=== PATIENT | male | born 1960 | race Caucasian/White ===

== ENCOUNTER 2016-06-13 02:51 | Emergency (ER) | payer SELFPAY ==
[2016-06-13] MEDS ORDERED: NS 1000 ML 1,000 ML IV SCH (03:00)
[2016-06-13] MEDS ORDERED: NS 1000 ML 1,000 ML ONE (03:01)
[2016-06-13 03:07] VITALS: BP 154/79; BMI 25.0
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
[2016-06-13 03:19] LABS: BASOPHILS # (AUTO) 0.1 X10^3/uL (0.0-0.1); BASOPHILS % (AUTO) 0.9 % (0.2-1.0); EOSINOPHILS # (AUTO) 0.3 x10^3/uL (0.0-0.2); EOSINOPHILS % (AUTO) 3.3 % (0.9-2.9); HEMATOCRIT 45.8 % (42.0-54.0); HEMOGLOBIN 15.8 g/dL (13.5-18.0); LYMPHOCYTES # (AUTO) 3.6 X10^3/uL (1.3-2.9); LYMPHOCYTES % (AUTO) 35.6 % (21.0-51.0); MEAN CORPUSCULAR HEMOGLOBIN 31.1 pg (27.0-34.0); MEAN CORPUSCULAR HGB CONC 34.4 g/dL (33.0-35.0); MEAN CORPUSCULAR VOLUME 90.2 fL (80.0-100.0); MONOCYTES % (AUTO) 9.9 % (0.0-13.0); NEUTROPHILS % (AUTO) 50.3 % (42.0-75.0); PLATELET COUNT 243 X10^3/uL (150.0-450.0); RED BLOOD COUNT 5.08 X10^6/uL (4.7-6.0); RED CELL DISTRIBUTION WIDTH 13.2 % (11.6-16.5)
[2016-06-13 03:28] LABS: ALANINE AMINOTRANSFERASE 27 Units/L (12-78); ALBUMIN 3.3 g/dL (3.4-5.0); ALKALINE PHOSPHATASE 171 Units/L (46-116); ASPARTATE AMINO TRANSFERASE 27 Units/L (15-37); BLOOD UREA NITROGEN 15 mg/dL (7-18); CALCIUM 8.2 mg/dL (8.5-10.1); CARBON DIOXIDE 29.1 mmol/L (21-32); CHLORIDE 105 mmol/L (98-107); COR CA(FOR HYPOALB) 8.8 mg/dL (8.5-10.1); COR NA(FOR HYPERGLY) 142 mmol/L (136-145); CREATININE 0.99 mg/dL (0.70-1.30); GLUCOSE 127 mg/dL (65-99); SODIUM 141 mmol/L (136-145); TOTAL PROTEIN 7.3 g/dL (6.4-8.2); eGFR BLACK RACES > 60 (>60); eGFR NON BLACK RACES > 60 (>60)
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
[2016-06-13] MEDS ORDERED: ADACEL TDaP IM ONE ×2 (04:02→04:09)
[2016-06-13] MEDS ORDERED: ROCEPHIN VIAL 1 GM 1 GM in NS 50 ML IV + SPIKE MINIBAG* 50 ML IV ONE (04:14)
[2016-06-13] MEDS ORDERED: ROCEPHIN VIAL 1 GM ONE (04:19)
[2016-06-13] MEDS ORDERED: NS 50 ML IV + SPIKE MINIBAG* 50 ML IV ONE (04:19)
== END 2016-06-13 05:30 | disposition home or self-care (01) ==
LOC: ER 02:51
DX: S71.101A Unspecified open wound, right thigh, initial encounter (principal); R73.9 Hyperglycemia, unspecified; W34.00XA Accidental discharge from unspecified firearms or gun, initial encounter
CPT/HCPCS: 36415; 73552; 80053; 85025; 90471; 96365; 96367; 96374; 99283; A4222; J0696

== ENCOUNTER 2020-06-16 11:02 | Inpatient (IN) ==
[2020-06-16 11:11] VITALS: BMI 29.4
[2020-06-16] MEDS ORDERED: THORAZINE INJ 25 MG AMP IM ONE (11:35)
[2020-06-16] MEDS ORDERED: THORAZINE INJ 25 MG AMP ONE (11:37)
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
[2020-06-16 12:24] LABS: BASOPHILS % (AUTO) 0.2 % (0.2-1.0); HEMOGLOBIN 18.5 g/dL (13.5-18.0); LYMPHOCYTES # (AUTO) 1.3 X10^3/uL (1.3-2.9); LYMPHOCYTES % (AUTO) 5.8 % (21.0-51.0); MEAN CORPUSCULAR HEMOGLOBIN 31.1 pg (27.0-34.0); MEAN CORPUSCULAR HGB CONC 34.2 g/dL (33.0-35.0); MEAN CORPUSCULAR VOLUME 90.9 fL (80.0-100.0); MEAN PLATELET VOLUME 8.3 fL (7.4-11.0); MONOCYTES # (AUTO) 1.8 x10^3/uL (0.3-0.8); MONOCYTES % (AUTO) 8.1 % (0.0-13.0); NEUTROPHILS # (AUTO) 19.4 x10^3/uL (2.2-4.8); NEUTROPHILS % (AUTO) 85.9 % (42.0-75.0); PLATELET COUNT 266 X10^3/uL (150.0-450.0); RED BLOOD COUNT 5.94 X10^6/uL (4.7-6.0); RED CELL DISTRIBUTION WIDTH 13.6 % (11.6-16.5); WHITE BLOOD COUNT 22.5 X10^3/uL (3.6-10.0)
[2020-06-16 12:31] LABS: ALANINE AMINOTRANSFERASE 25 Units/L (12-78); ALBUMIN 3.7 g/dL (3.4-5.0); ALKALINE PHOSPHATASE 150 Units/L (46-116); AMYLASE 130 Units/L (25-115); ASPARTATE AMINO TRANSFERASE 25 Units/L (15-37); BLOOD UREA NITROGEN 65 mg/dL (7-18); CALCIUM 9.2 mg/dL (8.5-10.1); CARBON DIOXIDE 38.7 mmol/L (21-32); CHLORIDE 88 mmol/L (98-107); COR NA(FOR HYPERGLY) 135 mmol/L (136-145); LIPASE 154 Units/L (73-393); SODIUM 133 mmol/L (136-145); TOTAL PROTEIN 9.3 g/dL (6.4-8.2); eGFR NON BLACK RACES 38 (>60)
[2020-06-16 13:36] LABS: PLATELET MORPHOLOGY COMMENT NORMAL (NORMAL)
[2020-06-16] MEDS ORDERED: NS 1000 ML 1,000 ML IV ONE ×2 (14:53→17:18)
[2020-06-16] MEDS ORDERED: ZOFRAN INJ 4 MG VIAL IVP ONE (14:54)
[2020-06-16] MEDS ORDERED: ZOFRAN INJ 4 MG VIAL ONE ×2 (14:58→18:55)
[2020-06-16] MEDS ORDERED: NS 1000 ML 1,000 ML ONE ×3 (14:58→18:53)
--- NOTE | 2020-06-16 14:59 | CT ---
HISTORYABDOMINAL PAIN, N/V, HICCUPSSTUDYABDOMEN/PELVIS W/O CONCOMPARISONNone availableTECHNIQUEAxial CT images of the abdomen and pelvis without intravenous contrast. Coronal and sagittal images are obtained. Dose reduction techniques including Automated Exposure Control (AEC) and adjustment of mA and kV were utilized.FINDINGSLower chest: NormalLiver: NormalGallbladder and Bile Ducts:NormalPancreas: NormalSpleen: NormalAdrenals: NormalKidneys: NormalBladder: NormalBowel and Stomach: Small knuckle of small bowel extends into a 5.1 x 4.4 cm umbilical hernia. There is moderate dilation of the small bowel and stomach proximally, compatible with obstruction. The small bowel within the hernia sac appears dilated without mural thickening or significant adjacent inflammatory stranding. The small bowel distally is decompressed. Enteric contrast is only located within the gastric lumen. Colon is unremarkable.Lymph Nodes: No significant lymphadenopathyVasculature: Abdominal aorta and branching vessels are normal in caliberOther: No free air, free fluid, or focal fluid collection. There is an additional small fat containing left inguinal hernia and tiny right inguinal hernia, which also contains non inflamed fat.Osseous Structures: No acute osseous findings. Scattered degenerative changes of the spine.IMPRESSIONSmall-bowel obstruction related to a small segment of small bowel extending into an umbilical hernia. No CT findings of strangulation detected within the hernia sac at this time.Other chronic, incidental findings, as above.Electronically signed by: Esequiel Parham (Jun 16, 2020 14:57:31)
[2020-06-16] MEDS ORDERED: PEPCID 20 MG IV PREMIX* 20 MG/50 ML BAG IV ONE ×2 (15:04→15:08)
[2020-06-16] MEDS ORDERED: REGLAN INJ 10 MG VIAL IVP ONE (15:04)
[2020-06-16] MEDS ORDERED: ZOSYN VIAL 3.375 GRAMS IV ONE (17:24)
[2020-06-16] MEDS ORDERED: NS 100 ML IV + SPIKE MINIBAG* 100 ML IV ONE (17:24)
[2020-06-16] MEDS: ZOSYN VIAL 3.375 GRAMS 3.375 G in NS 100 ML IV + SPIKE MINIBAG* 100 ML IV SCH ×2 (17:34→23:30)
--- NOTE | 2020-06-16 18:02 | RAD ---
HISTORYPRE OP (SBO)/ NG TUBE PLACEMENTSTUDYCHEST x-ray, 1 VIEWCOMPARISONNoneFINDINGSThe trachea is midline. The cardiac silhouette is unremarkable. Nasogastric tube passes into the stomach.Lungs appear clear. No pneumothorax or pleural effusion is seen. Persistent bowel dilation is seen in the upper abdomen.No acute bony abnormality is seen.IMPRESSIONNasogastric tube passes into the fundus of the stomach.Electronically signed by: Chadwick Stahl (Jun 16, 2020 18:01:06)
[2020-06-16] MEDS ORDERED: FENTANYL INJ 100 mcg ONE (18:53)
[2020-06-16] MEDS ORDERED: ZEMURON 50 MG VIAL ONE (18:53)
[2020-06-16] MEDS ORDERED: OFIRMEV IV 1000 MG VIAL 1,000 MG/100 ML VIAL IV ONE (18:53)
[2020-06-16] MEDS ORDERED: ULTANE GAS IN ONE (18:55)
[2020-06-16] MEDS ORDERED: BRIDION ONE (18:55)
[2020-06-16] MEDS ORDERED: DIPRIVAN VIAL ONE (18:55)
[2020-06-16] MEDS ORDERED: DECADRON INJ ONE (18:55)
[2020-06-16] MEDS ORDERED: TORADOL 30 MG VIAL ONE (18:55)
[2020-06-16] MEDS ORDERED: XYLOCAINE 2 % (PLAIN) ONE (18:55)
[2020-06-16] MEDS ORDERED: VERSED ONE (18:55)
[2020-06-16] MEDS ORDERED: POLYMYXIN B SULFATE ONE (19:14)
[2020-06-16] MEDS ORDERED: DILAUDID INJ IVP PRN ×2 (20:24→21:07)
[2020-06-16] MEDS ORDERED: TYLENOL 325 MG TAB PO PRN (20:34)
[2020-06-16] MEDS ORDERED: NS 1000 ML 1,000 ML IV SCH (20:34)
[2020-06-16] MEDS ORDERED: MORPHINE SULFATE INJ 2 MG INJ IVP PRN (20:34)
[2020-06-16] MEDS ORDERED: FLAGYL IV PREMIX 500 MG BAG 500 MG/100 ML BAG IV SCH (21:00)
[2020-06-16] MEDS ORDERED: D5 1/2 NS 1000 ML 1,000 ML IV SCH ×2 (21:00)
[2020-06-16] MEDS ORDERED: DILAUDID INJ ONE (21:01)
[2020-06-16] MEDS ORDERED: ZOFRAN INJ 4 MG VIAL IVP PRN (21:07)
[2020-06-16] MEDS ORDERED: REGLAN INJ 10 MG VIAL IVP PRN (21:07)
[2020-06-16] MEDS ORDERED: PHENERGAN INJ 25 MG IM PRN (21:07)
[2020-06-16] MEDS ORDERED: BENADRYL INJ 50 MG VIAL IVP PRN (21:07)
[2020-06-16] MEDS: FLAGYL IV PREMIX 500 MG BAG 500 MG/100 ML BAG IV SCH (22:10)
[2020-06-17 05:43] LABS: BILIRUBIN,URINE NEGATIVE (NEGATIVE); BLOOD/HEMOGLOBIN,URINE NEGATIVE (NEGATIVE); GLUCOSE, URINE NEGATIVE (NEGATIVE); KETONES,URINE NEGATIVE (NEGATIVE); LEUKOCYTE ESTERASE ,URINE NEGATIVE (NEGATIVE); NITRITES,URINE NEGATIVE (NEGATIVE); PROTEIN,URINE 1+ (NEGATIVE); UROBILINOGEN,URINE NORMAL (NORMAL)
[2020-06-17 05:50] LABS: APPEARANCE,URINE CLEAR (CLEAR); BACTERIA,URINE TRACE /HPF (NEGATIVE); COLOR,URINE YELLOW (YELLOW); RBC,URINE 0-2 /HPF (0-3); SQUAMOUS EPITHELIAL CELL,UR RARE /HPF (NEGATIVE)
[2020-06-17 05:59] LABS: BASOPHILS % (AUTO) 0.1 % (0.2-1.0); HEMATOCRIT 41.3 % (42.0-54.0); LYMPHOCYTES # (AUTO) 0.7 X10^3/uL (1.3-2.9); LYMPHOCYTES % (AUTO) 4.7 % (21.0-51.0); MEAN CORPUSCULAR HGB CONC 33.9 g/dL (33.0-35.0); MEAN CORPUSCULAR VOLUME 91.4 fL (80.0-100.0); MEAN PLATELET VOLUME 8.8 fL (7.4-11.0); MONOCYTES # (AUTO) 1.2 x10^3/uL (0.3-0.8); MONOCYTES % (AUTO) 8.5 % (0.0-13.0); NEUTROPHILS # (AUTO) 12.2 x10^3/uL (2.2-4.8); NEUTROPHILS % (AUTO) 86.7 % (42.0-75.0); PLATELET COUNT 232 X10^3/uL (150.0-450.0); RED BLOOD COUNT 4.52 X10^6/uL (4.7-6.0); RED CELL DISTRIBUTION WIDTH 13.5 % (11.6-16.5); WHITE BLOOD COUNT 14.1 X10^3/uL (3.6-10.0)
[2020-06-17] MEDS: ZOSYN VIAL 3.375 GRAMS 3.375 G in NS 100 ML IV + SPIKE MINIBAG* 100 ML IV SCH ×3 (06:05→22:00)
[2020-06-17 06:33] LABS: ALBUMIN 2.5 g/dL (3.4-5.0); CALCIUM 7.4 mg/dL (8.5-10.1); CARBON DIOXIDE 32.9 mmol/L (21-32); COR CA(FOR HYPOALB) 8.6 mg/dL (8.5-10.1); CREATININE 1.69 mg/dL (0.70-1.30); TOTAL PROTEIN 6.5 g/dL (6.4-8.2)
[2020-06-17] MEDS: LOVENOX INJ 40 MG SYR SC SCH (09:01)
[2020-06-17] MEDS: DILAUDID INJ IVP PRN ×2 (09:07→18:06)
[2020-06-17] MEDS: FLAGYL IV PREMIX 500 MG BAG 500 MG/100 ML BAG IV SCH ×3 (09:25→20:27)
[2020-06-17] MEDS: D5 1/2 NS 1000 ML 1,000 ML IV SCH ×2 (09:50→17:56)
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
[2020-06-18] MEDS: D5 1/2 NS 1000 ML 1,000 ML IV SCH ×4 (01:27→20:38)
[2020-06-18] MEDS: FLAGYL IV PREMIX 500 MG BAG 500 MG/100 ML BAG IV SCH ×3 (05:11→20:38)
[2020-06-18] MEDS: ZOSYN VIAL 3.375 GRAMS 3.375 G in NS 100 ML IV + SPIKE MINIBAG* 100 ML IV SCH ×3 (06:13→21:53)
--- NOTE | 2020-06-18 07:37 | DR.CONSULT ---
CONSULT Consultation for Day of: Date: 06/17/20 Chief Complaint Chief Complaint: Abdominal pain Allergies Allergies Allergy/AdvReac Type Severity Reaction Status Date / Time No Known Drug Allergies Allergy Verified 06/16/20 11:14 History of Present Illness History of Present Illness: Pt is a 59 year old male no known past medical history admitted for strangulated umbilical hernia. He is post op day 1 of laparotomy, small bowel resection, repair or strangulated umbilical hernia. Medicine consulted for acute kidney injury. Creatinine gradually trending down: 1.90>1.69. Pt is currently on IVF D5% 1/2 NS@100ml/h. Will continue IVF and trend renal function. Other labs: Wbc 14.1, Hgb 14, Plt 232, Na 136, K 3.4, Glucose 182. On examination patient resting comfortably, still having some abdominal pain but has improved. Continue IV antibiotics: Zosyn. Pt is currently NPO, instructions per surgery OOB with binder, DVT prophylaxis. Will continue to monitor and follow up labs/imaging in the morning. Past Surgical History Surgical History: No History Social History Does patient currently use any type of tobacco product: No Have you used tobacco products in the last 12 months: No Type of Tobacco Use: None How many years tobacco product used: 0 Does any household member use tobacco: No Alcohol Use: None Drug Use: None Medications Home Medications: No Known Drug Allergies Allergy (Verified 06/16/20 11:14) CONTINUE taking the following medications NK 06/16/20 [History] Review of Systems Constitutional: Weakness; denies Fever and Chills Eyes: No Symptoms Reported ENT: No Symptoms Reported Respiratory: No Symptoms Reported Cardiovascular: No Symptoms Reported Gastrointestinal: Nausea and Abdominal Pain; denies Vomiting, Diarrhea and Constipation Genitourinary: No Symptoms Reported Musculoskeletal: No Symptoms Reported Skin: No Symptoms Reported Neurological: No Symptoms Reported Physical Exam Vital Signs: Temperature 98.1 F Pulse Rate [Left] 84 Pulse Rate 72 Respiratory Rate 20 Blood Pressure [Left Arm] 122/63 Blood Pressure 122/60 O2 Sat by Pulse Oximetry 96 Oriented: Normal Eyes: Normal Ear: Normal Nose: Normal Throat: Normal Respiratory: Clear Throughout Cardiovascular: Normal : Normal Auscultation: Bowel Sounds: Normal Palpation: Normal Tenderness: Diffuse Skin: Normal Musculoskeletal: Normal Psychiatric: Normal Mood Description: Calm Speech Pattern: Clear Plan Plan: MAI: Continue IVF, trend renal function
--- NOTE | 2020-06-18 07:50 | PCM.PROG ---
Progress Note Progress Note for Day of Date of Exam: 06/18/20 Subjective Subjective: Pt is a 59 year old male no known past medical history admitted for strangulated umbilical hernia. He is POD#2 of laparotomy, small bowel resection, repair of strangulated umbilical hernia. Medicine consulted for acute kidney injury. This morning he is resting comfortably in bed and reports improvement in abdominal pain. He has been changed to CLD by surgery, no bowel movement yet. Renal function has significantly improved Cr:1.90>1.69>1.0. Pt is currently on IVF D5% 1/2 NS@100ml/h and IV Zosyn. Labs/imaging: Wbc 9.1, Hgb 13, Plt 224, Na 137, K 3.6, Glucose 109. Continue OOB with binder, DVT prophylaxis, IVF, and monitor renal function. Past Medical Family Social History Past Med/Fam/Surg Hx: No changes since H&P Allergies: Allergies No Known Drug Allergies Allergy (Verified 06/16/20 11:14) Review of Systems ROS: No change since H&P Vital Signs and I&O's Vital Signs: Temperature 98.1 F Pulse Rate [Left] 84 Pulse Rate 72 Respiratory Rate 20 Blood Pressure [Left Arm] 122/63 Blood Pressure 122/60 O2 Sat by Pulse Oximetry 96 Intake and Output: Intake & Output 06/15/20 06/16/20 06/17/20 06/18/20 23:59 23:59 23:59 23:59 Intake Total 500 / 500 1543 / 1543 534 / 534 Output Total 630 / 630 1400 / 1400 850 / 850 Balance -130 / -130 143 / 143 -316 / -316 Physical Exam Oriented: Normal Eyes: Normal Ear: Normal Nose: Normal Throat: Normal Respiratory: Normal Cardiovascular: Normal : Normal Auscultation: Bowel Sounds: Normal Tenderness: Mild Skin: Normal Musculoskeletal: Normal Psychiatric: Normal Mood Description: Calm Speech Pattern: Clear Laboratory and Diagnostics Result Diagrams: 06/18/20 07:32 06/18/20 07:32 Labs: 06/16/20 19:57 Abdomen Gram Stain - Final Laboratory WBC 14.1 X10^3/uL (3.6-10.0) H D 06/17/20 05:15 RBC 4.52 X10^6/uL (4.7-6.0) L 06/17/20 05:15 Hgb 14.0 g/dL (13.5-18.0) D 06/17/20 05:15 Hct 41.3 % (42.0-54.0) L 06/17/20 05:15 MCV 91.4 fL (80.0-100.0) 06/17/20 05:15 MCH 31.0 pg (27.0-34.0) 06/17/20 05:15 MCHC 33.9 g/dL (33.0-35.0) 06/17/20 05:15 RDW 13.5 % (11.6-16.5) 06/17/20 05:15 Plt Count 232 X10^3/uL (150.0-450.0) 06/17/20 05:15 Plt Count Comment Adequate (ADEQUATE) 06/16/20 11:50 MPV 8.8 fL (7.4-11.0) 06/17/20 05:15 Neut % (Auto) 86.7 % (42.0-75.0) H 06/17/20 05:15 Lymph % (Auto) 4.7 % (21.0-51.0) L 06/17/20 05:15 [place] % (Auto) 8.5 % (0.0-13.0) 06/17/20 05:15 Eos % (Auto) 0.0 % (0.9-2.9) L 06/17/20 05:15 Baso % (Auto) 0.1 % (0.2-1.0) L 06/17/20 05:15 Neut # (Auto) 12.2 x10^3/uL (2.2-4.8) H 06/17/20 05:15 Lymph # (Auto) 0.7 X10^3/uL (1.3-2.9) L 06/17/20 05:15 [place] # (Auto) 1.2 x10^3/uL (0.3-0.8) H 06/17/20 05:15 Eos # (Auto) 0.0 x10^3/uL (0.0-0.2) 06/17/20 05:15 Baso # (Auto) 0.0 X10^3/uL (0.0-0.1) 06/17/20 05:15 Absolute Nucleated RBC 0.1 /100WBC 06/17/20 05:15 Total Counted 100 06/16/20 11:50 Neutrophils % (Manual) 87 % (39-76) H 06/16/20 11:50 Lymphocytes % (Manual) 9 % (13-43) L 06/16/20 11:50 Monocytes % (Manual) 4 % (4-9) 06/16/20 11:50 Plt Morphology Comment Normal (NORMAL) 06/16/20 11:50 RBC Morphology Normal (NORMAL) 06/16/20 11:50 Sodium 136 mmol/L (136-145) 06/17/20 05:15 Corrected Sodium 138 mmol/L (136-145) 06/17/20 05:15 Potassium 3.4 mmol/L (3.5-5.1) L 06/17/20 05:15 Chloride 98 mmol/L (98-107) 06/17/20 05:15 Carbon Dioxide 32.9 mmol/L (21-32) H 06/17/20 05:15 BUN 61 mg/dL (7-18) H 06/17/20 05:15 Creatinine 1.69 mg/dL (0.70-1.30) H 06/17/20 05:15 Est GFR (MDRD) Af Amer 53 (>60) L 06/17/20 05:15 Est GFR (MDRD) Non-Af 44 (>60) L 06/17/20 05:15 Glucose 182 mg/dL (65-99) H 06/17/20 05:15 Calcium 7.4 mg/dL (8.5-10.1) L 06/17/20 05:15 Corrected Calcium 8.6 mg/dL (8.5-10.1) 06/17/20 05:15 Total Bilirubin 1.40 mg/dL (0.2-1.0) H 06/17/20 05:15 AST 22 Units/L (15-37) 06/17/20 05:15 ALT 21 Units/L (12-78) 06/17/20 05:15 Alkaline Phosphatase 105 Units/L (46-116) 06/17/20 05:15 Total Protein 6.5 g/dL (6.4-8.2) 06/17/20 05:15 Albumin 2.5 g/dL (3.4-5.0) L 06/17/20 05:15 Globulin 4.0 g/dL (2.5-4.5) 06/17/20 05:15 Albumin/Globulin Ratio 0.6 Ratio (1.1-2.1) L 06/17/20 05:15 Amylase 130 Units/L (25-115) H 06/16/20 11:50 Lipase 154 Units/L (73-393) 06/16/20 11:50 Specimen Type Clean catch urine 06/17/20 04:16 Urine Color Yellow (YELLOW) 06/17/20 04:16 Urine Appearance Clear (CLEAR) 06/17/20 04:16 Urine pH 5.0 (5.0 - 8.0) 06/17/20 04:16 Ur Specific [place] 1.020 (1.000-1.030) 06/17/20 04:16 Urine Protein 1+ (NEGATIVE) 06/17/20 04:16 Urine Glucose (UA) Negative (NEGATIVE) 06/17/20 04:16 Urine Ketones Negative (NEGATIVE) 06/17/20 04:16 Urine Occult Blood Negative (NEGATIVE) 06/17/20 04:16 Urine Nitrite Negative (NEGATIVE) 06/17/20 04:16 Urine Bilirubin Negative (NEGATIVE) 06/17/20 04:16 Urine Urobilinogen Normal (NORMAL) 06/17/20 04:16 Ur Leukocyte Esterase Negative (NEGATIVE) 06/17/20 04:16 Urine RBC 0-2 /HPF (0-3) 06/17/20 04:16 Urine WBC 0-2 /HPF (0-5) 06/17/20 04:16 Ur Squamous Epith Cells Rare /HPF (NEGATIVE) 06/17/20 04:16 Urine Bacteria Trace /HPF (NEGATIVE) 06/17/20 04:16 Ur Culture Indicated? No/not indicated 06/17/20 04:16 SARS CoV-2 RNA Rapid RODRIGUEZ Negative (NEGATIVE) 06/16/20 13:56 Tissue Pathology Cancelled 06/16/20 19:57 Plan (1) Acute kidney injury: Status: Acute Plan: IVF, monitor renal function (2) Strangulated hernia of abdominal wall: Status: Acute
[2020-06-18 08:10] LABS: BASOPHILS % (AUTO) 0.1 % (0.2-1.0); EOSINOPHILS % (AUTO) 0.3 % (0.9-2.9); HEMATOCRIT 38.9 % (42.0-54.0); LYMPHOCYTES # (AUTO) 1.5 X10^3/uL (1.3-2.9); LYMPHOCYTES % (AUTO) 16.5 % (21.0-51.0); MEAN CORPUSCULAR HEMOGLOBIN 31.1 pg (27.0-34.0); MEAN CORPUSCULAR HGB CONC 33.4 g/dL (33.0-35.0); MEAN CORPUSCULAR VOLUME 93.3 fL (80.0-100.0); MEAN PLATELET VOLUME 8.3 fL (7.4-11.0); MONOCYTES % (AUTO) 11.5 % (0.0-13.0); NEUTROPHILS # (AUTO) 6.5 x10^3/uL (2.2-4.8); NEUTROPHILS % (AUTO) 71.6 % (42.0-75.0); PLATELET COUNT 224 X10^3/uL (150.0-450.0); RED BLOOD COUNT 4.17 X10^6/uL (4.7-6.0); RED CELL DISTRIBUTION WIDTH 13.4 % (11.6-16.5); WHITE BLOOD COUNT 9.1 X10^3/uL (3.6-10.0)
[2020-06-18 08:25] LABS: ALANINE AMINOTRANSFERASE 20 Units/L (12-78); ALBUMIN 2.4 g/dL (3.4-5.0); ALKALINE PHOSPHATASE 86 Units/L (46-116); ASPARTATE AMINO TRANSFERASE 17 Units/L (15-37); BLOOD UREA NITROGEN 35 mg/dL (7-18); CALCIUM 7.8 mg/dL (8.5-10.1); CARBON DIOXIDE 32.2 mmol/L (21-32); CHLORIDE 103 mmol/L (98-107); COR CA(FOR HYPOALB) 9.1 mg/dL (8.5-10.1); SODIUM 137 mmol/L (136-145); TOTAL PROTEIN 6.3 g/dL (6.4-8.2); eGFR NON BLACK RACES > 60 (>60)
[2020-06-18] MEDS: DILAUDID INJ IVP PRN (09:08)
[2020-06-18] MEDS: ZOFRAN INJ 4 MG VIAL IVP PRN (09:08)
[2020-06-18] MEDS ORDERED: K-DUR TAB 20 MEQ PO PRN (09:22)
[2020-06-18] MEDS ORDERED: POTASSIUM CHL 60 MEQ/NS 0.45% 500 ML IV PRN (09:22)
[2020-06-18] MEDS ORDERED: K-RIDER 10 MEQ/NS 100 ML 10 MEQ/100 ML BAG IV PRN (09:22)
[2020-06-18] MEDS ORDERED: POTASSIUM CHLORIDE LIQ 20 MEQ UDC PO PRN (09:22)
[2020-06-18] MEDS ORDERED: POTASSIUM CHL 40 MEQ/NS 0.45% 500 ML IV PRN (09:22)
[2020-06-18] MEDS ORDERED: KLOR-CON PO PRN (09:22)
[2020-06-18] MEDS ORDERED: MICRO K EXTEN CAP 10 MEQ PO PRN (09:22)
[2020-06-18] MEDS: LOVENOX INJ 40 MG SYR SC SCH (10:39)
--- NOTE | 2020-06-18 12:37 | DR.PROGNOT ---
Hospital Progress Notes - Progress Note for Day of: Progress Note Date: 06/18/20 - Chief Complaint Chief Complaint: . feeling better with less abdominal pain . no BM yet . WBC normal .. K 3.5 .BUN/Creat 35/1 .'temp 99 - Past Medical Family Social History Past Med/Fam/Surg Hx: No changes since H&P Allergies: Allergies No Known Drug Allergies Allergy (Verified 06/16/20 11:14) - Review Of Systems ROS: No change since H&P - Vital Signs Vital Signs: Temperature 99 F Pulse Rate [Left] 75 Pulse Rate 72 Respiratory Rate 20 Blood Pressure [Left Arm] 111/68 Blood Pressure 122/60 O2 Sat by Pulse Oximetry 97 - Physical Exam Oriented: Normal Eyes: Normal Ear: Normal Nose: Normal Throat: Normal Respiratory: Normal Cardiovascular: Normal : Normal GI:Auscultation: Normal GI:Palpation: Normal GI: Tenderness: Diffuse (soft , full abdomen with mild diffuse tenderness . ) Skin: Normal Musculoskeletal: Normal Psychiatric: Normal Mood Description: Calm Speech Pattern: Clear - Laboratory and Diagnostics Result Diagrams: 06/18/20 07:32 06/18/20 07:32 Labs: 06/16/20 19:57 Abdomen Gram Stain - Final 06/16/20 19:57 Abdomen Wound Culture - Preliminary Laboratory WBC 9.1 X10^3/uL (3.6-10.0) 06/18/20 07:32 RBC 4.17 X10^6/uL (4.7-6.0) L 06/18/20 07:32 Hgb 13.0 g/dL (13.5-18.0) L 06/18/20 07:32 Hct 38.9 % (42.0-54.0) L 06/18/20 07:32 MCV 93.3 fL (80.0-100.0) 06/18/20 07:32 MCH 31.1 pg (27.0-34.0) 06/18/20 07:32 MCHC 33.4 g/dL (33.0-35.0) 06/18/20 07:32 RDW 13.4 % (11.6-16.5) 06/18/20 07:32 Plt Count 224 X10^3/uL (150.0-450.0) 06/18/20 07:32 Plt Count Comment Adequate (ADEQUATE) 06/16/20 11:50 MPV 8.3 fL (7.4-11.0) 06/18/20 07:32 Neut % (Auto) 71.6 % (42.0-75.0) 06/18/20 07:32 Lymph % (Auto) 16.5 % (21.0-51.0) L 06/18/20 07:32 [place] % (Auto) 11.5 % (0.0-13.0) 06/18/20 07:32 Eos % (Auto) 0.3 % (0.9-2.9) L 06/18/20 07:32 Baso % (Auto) 0.1 % (0.2-1.0) L 06/18/20 07:32 Neut # (Auto) 6.5 x10^3/uL (2.2-4.8) H 06/18/20 07:32 Lymph # (Auto) 1.5 X10^3/uL (1.3-2.9) 06/18/20 07:32 [place] # (Auto) 1.0 x10^3/uL (0.3-0.8) H 06/18/20 07:32 Eos # (Auto) 0.0 x10^3/uL (0.0-0.2) 06/18/20 07:32 Baso # (Auto) 0.0 X10^3/uL (0.0-0.1) 06/18/20 07:32 Absolute Nucleated RBC 0.0 /100WBC 06/18/20 07:32 Total Counted 100 06/16/20 11:50 Neutrophils % (Manual) 87 % (39-76) H 06/16/20 11:50 Lymphocytes % (Manual) 9 % (13-43) L 06/16/20 11:50 Monocytes % (Manual) 4 % (4-9) 06/16/20 11:50 Plt Morphology Comment Normal (NORMAL) 06/16/20 11:50 RBC Morphology Normal (NORMAL) 06/16/20 11:50 Sodium 137 mmol/L (136-145) 06/18/20 07:32 Corrected Sodium TNP 06/18/20 07:32 Potassium 3.6 mmol/L (3.5-5.1) 06/18/20 07:32 Chloride 103 mmol/L (98-107) 06/18/20 07:32 Carbon Dioxide 32.2 mmol/L (21-32) H 06/18/20 07:32 BUN 35 mg/dL (7-18) H 06/18/20 07:32 Creatinine 1.00 mg/dL (0.70-1.30) 06/18/20 07:32 Est GFR (MDRD) Af Amer > 60 (>60) 06/18/20 07:32 Est GFR (MDRD) Non-Af > 60 (>60) 06/18/20 07:32 Glucose 109 mg/dL (65-99) H 06/18/20 07:32 Calcium 7.8 mg/dL (8.5-10.1) L 06/18/20 07:32 Corrected Calcium 9.1 mg/dL (8.5-10.1) 06/18/20 07:32 Magnesium 2.8 mg/dL (1.7-2.9) 06/18/20 07:32 Total Bilirubin 1.00 mg/dL (0.2-1.0) 06/18/20 07:32 AST 17 Units/L (15-37) 06/18/20 07:32 ALT 20 Units/L (12-78) 06/18/20 07:32 Alkaline Phosphatase 86 Units/L (46-116) 06/18/20 07:32 Total Protein 6.3 g/dL (6.4-8.2) L 06/18/20 07:32 Albumin 2.4 g/dL (3.4-5.0) L 06/18/20 07:32 Globulin 3.9 g/dL (2.5-4.5) 06/18/20 07:32 Albumin/Globulin Ratio 0.6 Ratio (1.1-2.1) L 06/18/20 07:32 Amylase 130 Units/L (25-115) H 06/16/20 11:50 Lipase 154 Units/L (73-393) 06/16/20 11:50 Specimen Type Clean catch urine 06/17/20 04:16 Urine Color Yellow (YELLOW) 06/17/20 04:16 Urine Appearance Clear (CLEAR) 06/17/20 04:16 Urine pH 5.0 (5.0 - 8.0) 06/17/20 04:16 Ur Specific [place] 1.020 (1.000-1.030) 06/17/20 04:16 Urine Protein 1+ (NEGATIVE) 06/17/20 04:16 Urine Glucose (UA) Negative (NEGATIVE) 06/17/20 04:16 Urine Ketones Negative (NEGATIVE) 06/17/20 04:16 Urine Occult Blood Negative (NEGATIVE) 06/17/20 04:16 Urine Nitrite Negative (NEGATIVE) 06/17/20 04:16 Urine Bilirubin Negative (NEGATIVE) 06/17/20 04:16 Urine Urobilinogen Normal (NORMAL) 06/17/20 04:16 Ur Leukocyte Esterase Negative (NEGATIVE) 06/17/20 04:16 Urine RBC 0-2 /HPF (0-3) 06/17/20 04:16 Urine WBC 0-2 /HPF (0-5) 06/17/20 04:16 Ur Squamous Epith Cells Rare /HPF (NEGATIVE) 06/17/20 04:16 Urine Bacteria Trace /HPF (NEGATIVE) 06/17/20 04:16 Ur Culture Indicated? No/not indicated 06/17/20 04:16 SARS CoV-2 RNA Rapid RODRIGUEZ Negative (NEGATIVE) 06/16/20 13:56 Tissue Pathology Cancelled 06/16/20 19:57 Tissue Pathology To follow 06/16/20 19:57 - Assessment and Plan 3: post op day 2 . laparotomy , small bowel resection , repair of strangulated umbilical hernia . same PO care . improved renal function and dehydration . OOB with binder . IV ATB , DVT prophylaxis . . on clear liquid .
[2020-06-18] MEDS: PERCOCET TAB 5/325 MG PO PRN (14:57)
[2020-06-19] MEDS: D5 1/2 NS 1000 ML 1,000 ML IV SCH ×2 (01:28→14:35)
[2020-06-19] MEDS: FLAGYL IV PREMIX 500 MG BAG 500 MG/100 ML BAG IV SCH ×2 (04:00→13:43)
[2020-06-19] MEDS: ZOSYN VIAL 3.375 GRAMS 3.375 G in NS 100 ML IV + SPIKE MINIBAG* 100 ML IV SCH ×2 (05:11→14:25)
[2020-06-19 06:09] LABS: BASOPHILS % (AUTO) 0.3 % (0.2-1.0); EOSINOPHILS # (AUTO) 0.1 x10^3/uL (0.0-0.2); EOSINOPHILS % (AUTO) 1.1 % (0.9-2.9); HEMATOCRIT 37.6 % (42.0-54.0); HEMOGLOBIN 12.7 g/dL (13.5-18.0); LYMPHOCYTES # (AUTO) 1.2 X10^3/uL (1.3-2.9); LYMPHOCYTES % (AUTO) 14.3 % (21.0-51.0); MEAN CORPUSCULAR HEMOGLOBIN 31.3 pg (27.0-34.0); MEAN CORPUSCULAR HGB CONC 33.9 g/dL (33.0-35.0); MEAN CORPUSCULAR VOLUME 92.4 fL (80.0-100.0); MONOCYTES % (AUTO) 10.9 % (0.0-13.0); NEUTROPHILS # (AUTO) 6.4 x10^3/uL (2.2-4.8); NEUTROPHILS % (AUTO) 73.4 % (42.0-75.0); PLATELET COUNT 230 X10^3/uL (150.0-450.0); RED BLOOD COUNT 4.07 X10^6/uL (4.7-6.0); WHITE BLOOD COUNT 8.8 X10^3/uL (3.6-10.0)
[2020-06-19 06:24] LABS: ALANINE AMINOTRANSFERASE 17 Units/L (12-78); ALBUMIN 2.3 g/dL (3.4-5.0); ALKALINE PHOSPHATASE 99 Units/L (46-116); ASPARTATE AMINO TRANSFERASE 17 Units/L (15-37); BLOOD UREA NITROGEN 25 mg/dL (7-18); CHLORIDE 104 mmol/L (98-107); COR CA(FOR HYPOALB) 9.4 mg/dL (8.5-10.1); CREATININE 0.88 mg/dL (0.70-1.30); SODIUM 136 mmol/L (136-145); TOTAL PROTEIN 6.2 g/dL (6.4-8.2); eGFR NON BLACK RACES > 60 (>60)
[2020-06-19] MEDS: ZOFRAN INJ 4 MG VIAL IVP PRN (08:57)
[2020-06-19] MEDS: PERCOCET TAB 5/325 MG PO PRN ×2 (08:57→13:43)
--- NOTE | 2020-06-19 12:46 | PCM.PROG ---
Progress Note Progress Note for Day of Date of Exam: 06/19/20 Subjective Subjective: Pt is a 59 year old male no known past medical history admitted for strangulated umbilical hernia. He is POD#3 of laparotomy, small bowel resection, repair of strangulated umbilical hernia. Medicine consulted for acute kidney injury. This morning he is sitting comfortably in in chair, no acute concerns or events overnight. MAI has resolved with Cr:0.88 after receiving IVF hydration. Pt will be discharged today per surgery with instructions to continue full liquid and soft diet with surgery follow up in 10 days. Labs/imaging: Wbc 8.8, Hgb 12.7, Plt 230, Na 136, K 3.9, Glucose 106. Pt discharged in stable condition with instructions to follow up with pcp and surgery in 10 days. Past Medical Family Social History Past Med/Fam/Surg Hx: No changes since H&P Allergies: Allergies No Known Drug Allergies Allergy (Verified 06/16/20 11:14) Review of Systems ROS: No change since H&P Vital Signs and I&O's Vital Signs: Temperature 98.9 F Pulse Rate [Left] 84 Pulse Rate 71 Respiratory Rate 20 Blood Pressure [Left Arm] 121/61 Blood Pressure 122/60 O2 Sat by Pulse Oximetry 96 Intake and Output: Intake & Output 06/16/20 06/17/20 06/18/20 06/19/20 23:59 23:59 23:59 23:59 Intake Total 500 / 500 1543 / 1543 2693 / 2693 474 / 474 Output Total 630 / 630 1400 / 1400 2350 / 2350 0 / 0 Balance -130 / -130 143 / 143 343 / 343 474 / 474 Physical Exam Oriented: Normal Eyes: Normal Ear: Normal Nose: Normal Throat: Normal Respiratory: Normal Cardiovascular: Normal : Normal Auscultation: Bowel Sounds: Normal Tenderness: Mild Skin: Normal Musculoskeletal: Normal Psychiatric: Normal Mood Description: Calm Speech Pattern: Clear and Appropriate Laboratory and Diagnostics Result Diagrams: 06/19/20 05:13 06/19/20 05:13 Labs: 06/16/20 19:57 Abdomen Gram Stain - Final 06/16/20 19:57 Abdomen Wound Culture - Preliminary Laboratory WBC 8.8 X10^3/uL (3.6-10.0) 06/19/20 05:13 RBC 4.07 X10^6/uL (4.7-6.0) L 06/19/20 05:13 Hgb 12.7 g/dL (13.5-18.0) L 06/19/20 05:13 Hct 37.6 % (42.0-54.0) L 06/19/20 05:13 MCV 92.4 fL (80.0-100.0) 06/19/20 05:13 MCH 31.3 pg (27.0-34.0) 06/19/20 05:13 MCHC 33.9 g/dL (33.0-35.0) 06/19/20 05:13 RDW 13.0 % (11.6-16.5) 06/19/20 05:13 Plt Count 230 X10^3/uL (150.0-450.0) 06/19/20 05:13 Plt Count Comment Adequate (ADEQUATE) 06/16/20 11:50 MPV 8.0 fL (7.4-11.0) 06/19/20 05:13 Neut % (Auto) 73.4 % (42.0-75.0) 06/19/20 05:13 Lymph % (Auto) 14.3 % (21.0-51.0) L 06/19/20 05:13 [place] % (Auto) 10.9 % (0.0-13.0) 06/19/20 05:13 Eos % (Auto) 1.1 % (0.9-2.9) 06/19/20 05:13 Baso % (Auto) 0.3 % (0.2-1.0) 06/19/20 05:13 Neut # (Auto) 6.4 x10^3/uL (2.2-4.8) H 06/19/20 05:13 Lymph # (Auto) 1.2 X10^3/uL (1.3-2.9) L 06/19/20 05:13 [place] # (Auto) 1.0 x10^3/uL (0.3-0.8) H 06/19/20 05:13 Eos # (Auto) 0.1 x10^3/uL (0.0-0.2) 06/19/20 05:13 Baso # (Auto) 0.0 X10^3/uL (0.0-0.1) 06/19/20 05:13 Absolute Nucleated RBC 0.1 /100WBC 06/19/20 05:13 Total Counted 100 06/16/20 11:50 Neutrophils % (Manual) 87 % (39-76) H 06/16/20 11:50 Lymphocytes % (Manual) 9 % (13-43) L 06/16/20 11:50 Monocytes % (Manual) 4 % (4-9) 06/16/20 11:50 Plt Morphology Comment Normal (NORMAL) 06/16/20 11:50 RBC Morphology Normal (NORMAL) 06/16/20 11:50 Sodium 136 mmol/L (136-145) 06/19/20 05:13 Corrected Sodium TNP 06/19/20 05:13 Potassium 3.9 mmol/L (3.5-5.1) 06/19/20 05:13 Chloride 104 mmol/L (98-107) 06/19/20 05:13 Carbon Dioxide 26.0 mmol/L (21-32) 06/19/20 05:13 BUN 25 mg/dL (7-18) H 06/19/20 05:13 Creatinine 0.88 mg/dL (0.70-1.30) 06/19/20 05:13 Est GFR (MDRD) Af Amer > 60 (>60) 06/19/20 05:13 Est GFR (MDRD) Non-Af > 60 (>60) 06/19/20 05:13 Glucose 106 mg/dL (65-99) H 06/19/20 05:13 Calcium 8.0 mg/dL (8.5-10.1) L 06/19/20 05:13 Corrected Calcium 9.4 mg/dL (8.5-10.1) 06/19/20 05:13 Magnesium 2.8 mg/dL (1.7-2.9) 06/18/20 07:32 Total Bilirubin 0.80 mg/dL (0.2-1.0) 06/19/20 05:13 AST 17 Units/L (15-37) 06/19/20 05:13 ALT 17 Units/L (12-78) 06/19/20 05:13 Alkaline Phosphatase 99 Units/L (46-116) 06/19/20 05:13 Total Protein 6.2 g/dL (6.4-8.2) L 06/19/20 05:13 Albumin 2.3 g/dL (3.4-5.0) L 06/19/20 05:13 Globulin 3.9 g/dL (2.5-4.5) 06/19/20 05:13 Albumin/Globulin Ratio 0.6 Ratio (1.1-2.1) L 06/19/20 05:13 Amylase 130 Units/L (25-115) H 06/16/20 11:50 Lipase 154 Units/L (73-393) 06/16/20 11:50 Specimen Type Clean catch urine 06/17/20 04:16 Urine Color Yellow (YELLOW) 06/17/20 04:16 Urine Appearance Clear (CLEAR) 06/17/20 04:16 Urine pH 5.0 (5.0 - 8.0) 06/17/20 04:16 Ur Specific [place] 1.020 (1.000-1.030) 06/17/20 04:16 Urine Protein 1+ (NEGATIVE) 06/17/20 04:16 Urine Glucose (UA) Negative (NEGATIVE) 06/17/20 04:16 Urine Ketones Negative (NEGATIVE) 06/17/20 04:16 Urine Occult Blood Negative (NEGATIVE) 06/17/20 04:16 Urine Nitrite Negative (NEGATIVE) 06/17/20 04:16 Urine Bilirubin Negative (NEGATIVE) 06/17/20 04:16 Urine Urobilinogen Normal (NORMAL) 06/17/20 04:16 Ur Leukocyte Esterase Negative (NEGATIVE) 06/17/20 04:16 Urine RBC 0-2 /HPF (0-3) 06/17/20 04:16 Urine WBC 0-2 /HPF (0-5) 06/17/20 04:16 Ur Squamous Epith Cells Rare /HPF (NEGATIVE) 06/17/20 04:16 Urine Bacteria Trace /HPF (NEGATIVE) 06/17/20 04:16 Ur Culture Indicated? No/not indicated 06/17/20 04:16 SARS CoV-2 RNA Rapid RODRIGUEZ Negative (NEGATIVE) 06/16/20 13:56 Tissue Pathology Cancelled 06/16/20 19:57 Tissue Pathology To follow 06/16/20 19:57 Plan (1) Acute kidney injury: Status: Acute Plan: IVF, monitor renal function (2) Strangulated hernia of abdominal wall: Status: Acute
[2020-06-19] MEDS: LOVENOX INJ 40 MG SYR SC SCH (14:36)
[2020-06-19 14:39] VITALS: BP 113/68
== END 2020-06-19 15:20 | disposition home or self-care (01) | DRG 345 ==
LOC: ER 11:05 → MED/SURG 18:16
PROVIDERS: ADMIT Surgery; ATTEND Surgery
DX: R94.31 Abnormal electrocardiogram [ECG] [EKG]; R10.84 Generalized abdominal pain; E86.0 Dehydration; K56.690 Other partial intestinal obstruction; K42.1 Umbilical hernia with gangrene; I10 Essential (primary) hypertension; N17.8 Other acute kidney failure; Z20.822 Contact with and (suspected) exposure to COVID-19